=== PATIENT | male | born 1960 | race Caucasian/White ===

== ENCOUNTER 2017-06-28 13:30 | Outpatient (CLI) | payer MEDICARE, BC ==
--- NOTE | 2017-06-28 14:01 | RAD ---
CHEST TWO VIEWS: History: Chest pain. Atherosclerosis. FINDINGS: The cardiac silhouette and pulmonary vasculature are unremarkable. Mediastinum is midline with post-o perative changes. There is no confluent airspace consolidation, pneumothorax, or pleural fluid eviden t. Lungs are hyperinflated. Degenerative changes involve the thoracic spine on the lateral view. Old healed left clavicular fracture is apparent. IMPRESSION: COPD. POS: [facility]
== END 2017-06-28 13:31 | disposition home or self-care (01) ==
LOC: RAD 13:30
PROVIDERS: ATTEND Thoracic Surgery (Cardiothoracic Vascular Surgery)
DX: I25.118 Atherosclerotic heart disease of native coronary artery with other forms of angina pectoris (principal); J44.9 Chronic obstructive pulmonary disease, unspecified
CPT/HCPCS: 71046

== ENCOUNTER 2017-07-25 11:14 | Outpatient (CLI) | payer MEDICARE, BC ==
--- NOTE | 2017-07-25 13:33 | RAD ---
TWO VIEWS CHEST: Comparison: 06-28-17 History: Atherosclerotic coronary artery disease. FINDINGS: Two views of the chest shows normal sized cardiomediastinal silhouette. The patient is status post CA BG. There is no evidence of consolidation, mass, or pleural effusion. IMPRESSION: No evidence of acute cardiopulmonary disease. POS: [facility]
== END 2017-07-25 11:15 | disposition home or self-care (01) ==
LOC: RAD 11:14
PROVIDERS: ATTEND Thoracic Surgery (Cardiothoracic Vascular Surgery)
DX: I25.118 Atherosclerotic heart disease of native coronary artery with other forms of angina pectoris (principal)
CPT/HCPCS: 71046

== ENCOUNTER 2017-09-06 10:40 | Outpatient (CLI) | payer MEDICARE ==
--- NOTE | 2017-09-06 13:07 | RAD ---
TWO VIEW CHESTTWO VIEW CHEST: HISTORY: Atherosclerotic heart disease. COMPARISON: 07/25/17. FINDINGS: Lung clarke are clear. Heart size normal. Postop sternotomy changes noted. No evidence of infiltra te or vascular congestion. No internal change. Osseous structures unremarkable. IMPRESSION: Unremarkable chest. POS: [facility]
== END 2017-09-06 10:41 | disposition home or self-care (01) ==
LOC: RAD 10:40
PROVIDERS: ATTEND Thoracic Surgery (Cardiothoracic Vascular Surgery)
DX: I25.118 Atherosclerotic heart disease of native coronary artery with other forms of angina pectoris (principal)
CPT/HCPCS: 71046

== ENCOUNTER 2017-10-23 09:57 | Outpatient (CLI) | payer MEDICARE ==
[~2017-10-23 09:57] MED LIST: Iopamidol 370 76% 100 ML VIAL ONE
--- NOTE | 2017-10-23 13:13 | CT ---
CT ANGIOGRAM THORAX WITH IV CONTRAST AND 3D RECONSTRUCTIONS: DATE: 10/23/17. HISTORY: Atherosclerotic heart disease of ho-chunk coronary artery with angina pectoris with documented spasm. History of single-vessel CABG in April of 2017. There is a portion of bone that is not healing ap propriately. FINDINGS: There are postsurgical changes related to CABG. Median sternotomy wires are seen and multiple surgic al clips are seen in the anterior mediastinum. There is stranding seen in the anterior mediastinum a s well, probably related to postsurgical changes. There is no fluid collection within the mediastinu m or anterior to the level of the sternum. The right internal mammary artery is well opacified and patent. The left internal mammary artery is not visualized. There are vascular calcifications seen within the coronary arteries with what appears to be a vascula r stent within the left coronary artery. Mild atherosclerotic plaque is seen at the aortic arch and at the origin of the great vessels. Thora cic aorta is patent without evidence of an aortic dissection. The pulmonary arteries are opacified and no filling defects are seen to suggest a pulmonary embolus. The lungs are clear aside from the calcified granuloma in the right upper lobe. There is a sclerotic density seen within the posterior right 8th rib demonstrating characteristics mo st compatible with a bone island. The upper abdomen demonstrates a normal CT appearance for arterial phase of imaging. IMPRESSION: 1. Mild atherosclerotic plaque in the thoracic aorta, but there is no evidence of an aortic dissecti on or aneurysm seen involving the thoracic aorta. 2. Postsurgical changes related to coronary artery bypass graft. The internal mammary artery on the right is opacified and well visualized, but the left internal mammary artery is not opacified or vis ualized on this exam. 3. Surgical clips and stranding in the anterior mediastinum related to recent coronary artery bypass graft and postsurgical changes. There is no fluid collection seen in the anterior mediastinum. POS: [facility]
== END 2017-10-23 09:58 | disposition home or self-care (01) ==
LOC: CT 09:57
PROVIDERS: ATTEND Thoracic Surgery (Cardiothoracic Vascular Surgery)
DX: I25.111 Atherosclerotic heart disease of native coronary artery with angina pectoris with documented spasm (principal); Z98.890 Other specified postprocedural states
CPT/HCPCS: 71275

== ENCOUNTER 2017-11-02 09:21 | Inpatient (IN) | payer MEDICARE ==
[2017-11-01 17:44] VITALS: BMI 32.4
[2017-11-02] MEDS ORDERED: CEFAZOLIN/Water 2 GM/20 ML SYRINGE ONE (12:38)
[2017-11-02 12:59] LABS: #Eosinphils 0.1 thou/uL (0.0-0.7); #Lymphocytes 2.3 thou/uL (1.20-3.40); #Monocytes 0.5 thou/uL (0.11-0.59); #Neutrophils 3.1 thou/uL (1.40-6.50); %Basophils 0.7 % (0.0-1.0); %Eosinophils 1.9 % (0.0-10.0); %Lymphocytes 38.6 % (21.0-51.0); %Monocytes 7.6 % (0.0-10.0); %Neutrophils 51.2 % (42.0-75.0); Hemoglobin 16.8 g/dL (14.0-18.0); Mean Corpuscular Hemoglobin 32.8 pg (27.0-31.0); Mean Corpuscular Volume 96.3 fl (80.0-94.0); Mean Platelet Volume 6.9 fL (7.4-10.4); Platelet Count 204 thou/uL (130-400); RBC Distribution Width 12.7 % (11.5-14.5); Red Blood Cell (RBC) Count 5.11 mill/uL (4.70-6.10)
[2017-11-02 13:17] LABS: Anion Gap 13 mmol/L (10-20); BUN (Urea Nitrogen) 17 mg/dL (8.4-25.7); Calc. Creatinine Clearance 113 mL/min (70-130); Calcium 9.6 mg/dL (7.8-10.44); Carbon Dioxide 27 mmol/L (22-29); Chloride 104 mmol/L (98-107); Estimated GFR-MDRD 68; Glucose 102 mg/dL (70-105); Potassium 4.6 mmol/L (3.5-5.1); Sodium 139 mmol/L (136-145)
[2017-11-02] MEDS ORDERED: Midazolam HCl 2 mg/2 ml Vial ONE ×2 (13:46→17:41)
[2017-11-02] MEDS ORDERED: PHENYLEPHRINE-NS 100 MCG/ML 10 ML SYRINGE ONE ×2 (13:46→14:53)
[2017-11-02] MEDS ORDERED: Fentanyl 100 MCG/2 ML VIAL ONE ×3 (13:46→18:51)
[2017-11-02] MEDS ORDERED: Fentanyl 250 MCG/5 ML VIAL ONE (13:57)
--- NOTE | 2017-11-02 14:04 | RAD ---
TWO VIEW CHEST: HISTORY: Preoperative evaluation. COMPARISON: 09/06/17. FINDINGS: The lungs remain clear. Heart size normal. Postop sternotomy changes. Vascular markings normal. O sseous structures unremarkable. Deformity of the left clavicle is noted from old left clavicle fract ure, stable in appearance. IMPRESSION: No acute process or interval change noted. POS: [facility]
[2017-11-02] MEDS ORDERED: Sodium Chloride 0.9% 50 ML ONE (14:48)
[2017-11-02] MEDS ORDERED: ePHEDrine/0.9% NaCl/PF SYRINGE 50 mg/10 ml ONE (14:53)
[2017-11-02] MEDS ORDERED: Dexamethasone 20 MG/5 ML VIAL ONE (14:53)
[2017-11-02] MEDS ORDERED: Lidocaine 1% PF 5 ML VIAL ONE (14:53)
[2017-11-02] MEDS ORDERED: Glycopyrrolate 0.2 MG/ML 5 ML SYRINGE ONE (14:53)
[2017-11-02] MEDS ORDERED: Esmolol 100 MG/10 ML VIAL ONE (14:53)
[2017-11-02] MEDS ORDERED: PROPOFOL 200 MG/20 ML VIAL ONE (14:53)
[2017-11-02] MEDS ORDERED: Ondansetron HCl/PF 4 MG/2 ML Vial ONE (14:53)
[2017-11-02] MEDS ORDERED: Labetalol 100 MG/20 ML MDV ONE (14:53)
[2017-11-02] MEDS ORDERED: hydrALAZINE 20 MG/ML VIAL ONE (16:55)
[2017-11-02] MEDS ORDERED: HYDROmorphone 0.5 MG/0.5 ML SYRINGE ONE (17:31)
[2017-11-02] MEDS ORDERED: Ondansetron HCl/PF 4 MG/2 ML Vial IVP PRN (17:53)
--- NOTE | 2017-11-02 19:08 | RAD ---
SINGLE VIEW OF THE CHEST: 11/02/17 COMPARISON: 11/02/17 HISTORY: Central line placement. FINDINGS: Single view of the chest shows a normal sized cardiomediastinal silhouette. There is a right subclavi an central venous catheter with its tip in the right atrium. A right sided chest tube is seen. No pne umothorax is present. The patient is status post sternotomy. There appears to be a mediastinal drain. IMPRESSION: Status post central line placement without evidence of complication. POS: [facility]
--- NOTE | 2017-11-02 20:02 | OP ---
DATE OF PROCEDURE: 11/02/2017 PROCEDURE PERFORMED: Sternal revision with rewiring. PREOPERATIVE DIAGNOSIS: Sternal nonunion. POSTOPERATIVE DIAGNOSIS: Sternal nonunion. SURGEON: Abner Diana MD ANESTHESIA: General endotracheal anesthesia. INDICATIONS: The patient is a 57-year-old man who underwent coronary artery bypass grafting in early April 2017. Although initially, he was felt to have stable sternum, in the course of follow up, he began complaining of a clicking sensation in the lower portion of his sternum. The skin was well healed and intact and the upper portion of his sternum felt stable. Patient was counseled. He has n ow gone about 6 months postop and the discomfort from the sternal instability bothers him sufficientl y to be willing to undergo the risks of revision. FINDINGS: There is a very small area involving 2 or 3 interspaces in the mid body of the sternum olga t was partially healed otherwise nearly the full length of the sternum was involved with synostosis. There was no obvious fractures of the sternum. NARRATIVE REPORT: After informed consent was obtained, the patient was taken to the operating room a nd placed in supine position on the operating table. After the induction of general anesthesia, the patient's right upper chest is prepped and draped in sterile fashion. A triple lumen central line ki t was used to place a right subclavian central line by the Seldinger technique for secure IV access i ncluding central access in case significant bleedings were encountered. The patient's torso, groins and lower extremities were then prepped and draped in sterile fashion. A knife and electrocautery we re then used to incise the soft tissues overlying the sternum through the previous sternotomy scar st arting at the xiphoid. The sternum was exposed with an exposure continued up to the sternal notch, t he wires were exposed, cut and removed and it could be appreciated as soon as the manubrium was expos ed that there was significant gap between the plates of the sternum at the notch. Much of the space between the two halve of the sternum were , but they were densely adherent posteriorly to th e underlying tissues starting with a rake and then a graduating to an ILSA retractor. Gentle traction was applied first on the left side of the sternum and then on the right to allow for sharp and elect rocautery dissection to free the posterior table of the sternum from the heart and scar tissue overly ing it. There was 1 vessel that had obviously been previously dissected, but was only about 3/4 of a millimeter in diameter and appeared to most likely represent a thymic branch of the mammary system w as violated. There were no associated EKG changes. The vessel was very small and no attempt was mad e to salvage it because it was so small and thin walled. It was ligated with clips and a figure-of-e ight Prolene suture to control the bleeding rather than relying on the electrocautery. When the ster num had been adequately mobilized, a curet was then used to debride the pseudo joint capsule from the sternum. Combination of simple and [id number] #7 stainless steel wires were placed. After jorden cing a 36-Armenian chest tube in the right pleural space which had been violated and in the anterior me diastinum to control drainage and to control an air leak from a small abraded area of the left lung a long the anterior medial aspect, the sternum was reapproximated and the wires twisted and tightened. The fascia was closed over the wires with #1 Vicryl. Subcutaneous tissue was irrigated and reapprox imated and the skin is closed with Vicryl subcuticular stitch. The wounds were dressed and the patie nt taken to the recovery area in stable condition.
[2017-11-02] MEDS: HYDROcodone/Acetaminophen 10/325 mg Tablet PO PRN (20:22)
[2017-11-02] MEDS ORDERED: RANITIDINE HCL PO SCH (21:00)
[2017-11-02] MEDS: Lorazepam 0.5 MG TAB PO SCH (21:59)
[2017-11-02] MEDS: Famotidine 20 MG TAB PO SCH (21:59)
[2017-11-02] MEDS: Tamsulosin HCl 0.4 MG CAP PO SCH (21:59)
[2017-11-02] MEDS: Aspirin 81 mg Enteric Coated Tablet PO SCH (21:59)
[2017-11-02] MEDS: Atorvastatin Calcium 40 MG TAB PO SCH (21:59)
[2017-11-02] MEDS: Escitalopram Oxalate 10 mg Tablet PO SCH (22:00)
[2017-11-02] MEDS: DARUNAVIR ETHANOLATE PO SCH (22:01)
[2017-11-02] MEDS: Emtricitabine/Tenofovir 200-300 MG TAB PO SCH (22:50)
[2017-11-02] MEDS: Mirtazapine 30 MG Soltab PO SCH (22:50)
[2017-11-02] MEDS ORDERED: oxyCODONE/Acetaminophen 5 mg/325 mg Tablet PO PRN (23:13)
[2017-11-03] MEDS: Ketorolac Tromethamine 30 MG/ML VIAL IVP SCH ×4 (00:18→17:28)
[2017-11-03] MEDS: oxyCODONE/Acetaminophen 5 mg/325 mg Tablet PO PRN ×3 (03:44→20:59)
--- NOTE | 2017-11-03 08:13 | RAD ---
ONE VIEW CHEST: HISTORY: Status post sternal revision. COMPARISON: 11/02/17. FINDINGS: There are sternotomy wires. Right-sided central venous catheter, unchanged. Right-sided chest tube and mediastinal drainage catheter are also unchanged. Persistent opacities in the right lung base. No pneumothorax. IMPRESSION: Findings compatible with recent surgery. POS: [facility]
[2017-11-03] MEDS: HYDROcodone/Acetaminophen 10/325 mg Tablet PO PRN (09:53)
[2017-11-03] MEDS: Albuterol Sulfate 2.5 mg/3 ml Neb NEB PRN (16:47)
[2017-11-03] MEDS: DARUNAVIR ETHANOLATE PO SCH (20:55)
[2017-11-03] MEDS: Tamsulosin HCl 0.4 MG CAP PO SCH (20:56)
[2017-11-03] MEDS: Escitalopram Oxalate 10 mg Tablet PO SCH (20:57)
[2017-11-03] MEDS: Lorazepam 0.5 MG TAB PO SCH (20:57)
[2017-11-03] MEDS: Famotidine 20 MG TAB PO SCH (20:57)
[2017-11-03] MEDS: Aspirin 81 mg Enteric Coated Tablet PO SCH (20:58)
[2017-11-03] MEDS: Atorvastatin Calcium 40 MG TAB PO SCH (20:59)
[2017-11-03] MEDS: Mirtazapine 30 MG Soltab PO SCH (21:00)
[2017-11-03] MEDS: Emtricitabine/Tenofovir 200-300 MG TAB PO SCH (21:01)
[2017-11-04] MEDS: oxyCODONE/Acetaminophen 5 mg/325 mg Tablet PO PRN ×4 (02:21→18:23)
[2017-11-04] MEDS ORDERED: Prevnar 13-Val Conj/PF 0.5 ML SYRINGE IM ONE (09:00)
[2017-11-04] MEDS ORDERED: Sodium Chloride 0.9% 10 ML ONE (09:03)
[2017-11-04] MEDS: Albuterol Sulfate 2.5 mg/3 ml Neb NEB PRN ×3 (09:34→19:15)
[2017-11-04] MEDS: HYDROcodone/Acetaminophen 10/325 mg Tablet PO PRN ×2 (16:07→21:02)
[2017-11-04] MEDS: Emtricitabine/Tenofovir 200-300 MG TAB PO SCH (20:51)
[2017-11-04] MEDS: Lorazepam 0.5 MG TAB PO SCH (20:52)
[2017-11-04] MEDS: Tamsulosin HCl 0.4 MG CAP PO SCH (20:52)
[2017-11-04] MEDS: Atorvastatin Calcium 40 MG TAB PO SCH (20:52)
[2017-11-04] MEDS: Famotidine 20 MG TAB PO SCH (20:52)
[2017-11-04] MEDS: DARUNAVIR ETHANOLATE PO SCH (20:53)
[2017-11-04] MEDS: Aspirin 81 mg Enteric Coated Tablet PO SCH (20:53)
[2017-11-04] MEDS: Escitalopram Oxalate 10 mg Tablet PO SCH (20:53)
[2017-11-04] MEDS: Mirtazapine 30 MG Soltab PO SCH (21:00)
[2017-11-05] MEDS: Albuterol Sulfate 2.5 mg/3 ml Neb NEB PRN ×2 (00:14→11:32)
[2017-11-05] MEDS: oxyCODONE/Acetaminophen 5 mg/325 mg Tablet PO PRN (00:16)
[2017-11-05] MEDS: HYDROcodone/Acetaminophen 10/325 mg Tablet PO PRN ×2 (04:54→10:25)
--- NOTE | 2017-11-05 11:40 | RAD ---
PORTABLE CHEST 1 VIEW: Date: 11/05/17 Time: 0902 hours HISTORY: Status post sternal revision. FINDINGS/IMPRESSION: Comparison made with exam of 11/03/17. Changes of median sternotomy are again seen. Right chest tube, mediastinal drain, and right subclavia n central line are again noted. The heart size is normal. There are mild atelectatic changes at the l walt bases. No pneumothoraces are seen. POS: [facility]
[2017-11-05 11:59] VITALS: BP 148/70; TEMP 98
--- NOTE | 2017-11-07 17:56 | EKG ---
Test Reason : PREOP Blood Pressure : / mmHG Vent. Rate : 065 BPM Atrial Rate : 065 BPM P-R Int : 190 ms QRS Dur : 096 ms QT Int : 404 ms P-R-T Axes : 052 068 086 degrees QTc Int : 420 ms Normal sinus rhythm Septal infarct , age undetermined Abnormal ECG No previous ECGs available Confirmed by Elaine WOODS ([id number]) on 11/07/2017 5:56:07 PM Referred By: DRE Confirmed By:Elaine WOODS
== END 2017-11-05 13:48 | disposition home or self-care (01) | DRG 909 ==
LOC: SURG A 11:02 → 2NO 19:48
PROVIDERS: ADMIT Thoracic Surgery (Cardiothoracic Vascular Surgery); ATTEND Thoracic Surgery (Cardiothoracic Vascular Surgery)
PROC: 0PQ00ZZ Repair Sternum, Open Approach (ICD-10-PCS; principal; 2017-11-02)
PROC: 0PB00ZZ Excision of Sternum, Open Approach (ICD-10-PCS; 2017-11-02)
PROC: 0PC00ZZ Extirpation of Matter from Sternum, Open Approach (ICD-10-PCS; 2017-11-02)
DX: T81.32XA Disruption of internal operation (surgical) wound, not elsewhere classified, initial encounter (principal); I25.118 Atherosclerotic heart disease of native coronary artery with other forms of angina pectoris; M62.830 Muscle spasm of back; E78.2 Mixed hyperlipidemia; K21.9 Gastro-esophageal reflux disease without esophagitis; F41.9 Anxiety disorder, unspecified; G62.9 Polyneuropathy, unspecified; Z21 Asymptomatic human immunodeficiency virus [HIV] infection status; G47.00 Insomnia, unspecified; R73.03 Prediabetes; Z98.1 Arthrodesis status; Z98.61 Coronary angioplasty status; Z95.1 Presence of aortocoronary bypass graft; Z79.82 Long term (current) use of aspirin; Z79.899 Other long term (current) drug therapy; Z83.3 Family history of diabetes mellitus; Z82.49 Family history of ischemic heart disease and other diseases of the circulatory system; Z80.9 Family history of malignant neoplasm, unspecified; Z87.891 Personal history of nicotine dependence; Z88.3 Allergy status to other anti-infective agents; Z88.8 Allergy status to other drugs, medicaments and biological substances
CPT/HCPCS: 36415; 71045; 71046; 80048; 85025; 86850; 86900; 86901; 93005; 93010; 94640; A4216; J0360; J1100; J1170; J1642; J1885; J2001; J2250; J2405; J2704; J3010; J7611; J7620